=== PATIENT | male | born 1950 | race Hispanic/Latino ===

== ENCOUNTER 2021-10-29 13:10 | Emergency (ER) | payer OTHER ==
[~2021-10-29] VITALS: Ht 162.6 cm; Wt 83.9 kg
[~2021-10-29 13:10] MED LIST: DILTIAZEM PO; METFORMIN HCL PO; Z NIFEDIPINE PO; Z.0.ASPIRIN325 MG PO; Z.0.DIGOXIN250 MCG PO; Z.0.ENALAPRIL MALEA2 PO; Z.0.GLUCOPHAGE850 MG PO; Z.0.GLYBURIDE5 MG PO; Z.0.HYDROCHLOROTHIA2 PO; Z.0.JANUVIA100 MG PO; Z.0.LOVASTATIN40 MG PO; Z.0.METOPROLOL TART2 PO; Z.0.OMEPRAZOLE20 M1 PO; Z.0.WARFARIN SODIUM2 PO
[2021-10-29] MEDS ORDERED: HYDROCODONE/APAP 5MG-325MG TAB PO NR (13:45)
[2021-10-29] MEDS ORDERED: KETOROLAC TROMETHAMINE 30 MG/ML VIAL IM ONE (13:45)
[2021-10-29] MEDS ORDERED: ULTRAM50 MG PO (15:01)
== END 2021-10-29 15:07 | disposition home or self-care (01) ==
LOC: ER 13:22
DX: S20.212A Contusion of left front wall of thorax, initial encounter (principal); M54.50 Low back pain, unspecified; W01.198A Fall on same level from slipping, tripping and stumbling with subsequent striking against other object, initial encounter; Y93.01 Activity, walking, marching and hiking; Y92.008 Other place in unspecified non-institutional (private) residence as the place of occurrence of the external cause; E78.5 Hyperlipidemia, unspecified; E78.00 Pure hypercholesterolemia, unspecified; Z96.643 Presence of artificial hip joint, bilateral
CPT/HCPCS: 71101; 99283; J1885